=== PATIENT | female | born 1970 | race Caucasian/White ===

== ENCOUNTER 2016-11-07 05:33 | Observation (INO) | payer BC, OTHER ==
[2016-10-25 16:13] VITALS: BMI 24.0
[2016-11-07] VITALS (14 sets, daily range): BP systolic 108–136; BP diastolic 72–85; PULSE 65–111; TEMP 36.3–36.9; O2SAT 95–98; Ht 167.6 cm; Wt 68.2 kg
[~2016-11-07] VITALS: Ht 167.6 cm; Wt 68.2 kg
[~2016-11-07 05:33] MED LIST: ASPI81TA28 PO; BLAC40CA2 PO; MULT-506 PO; OMEG10007 PO; VENL150C56 PO
[2016-11-07] MEDS ORDERED: CEFAZOLIN 2000 MG/60 ML D5W IV SCH (06:00)
[2016-11-07] MEDS ORDERED: PREGABALIN 75 MG CAP PO SCH (06:00)
[2016-11-07] MEDS ORDERED: LACTATED RINGER'S 1000ML 1,000 ML IV SCH (06:00)
[2016-11-07] MEDS ORDERED: CeleBREX 200 MG CAP PO SCH (06:00)
[2016-11-07] MEDS ORDERED: MIDAZOLAM HCL 1 MG/ML 2ML VIAL ONE (06:39)
[2016-11-07] MEDS ORDERED: FENTANYL CITRATE INJ 50 MCG/1 ML 2 ML VIAL ONE (06:39)
[2016-11-07] MEDS ORDERED: THROMBIN 5000 UNITS KIT ONE (06:49)
[2016-11-07] MEDS ORDERED: BACITRACIN 50000 UNIT VIAL ONE (06:49)
--- NOTE | 2016-11-07 07:23 | History and Physical ---
History & Physical Date Nov 07, 2016. Chief Complaint Neck and arm pain History of Present Illness The patient is a 45 year old female with complaints of bilateral arm pain R greater than left. associated numbness in ulnar distribution. symptoms are chronic. no weakness in hands. no myelopathy. MRI shows cervical stenosis C5- 7 with mild DDD C4-5. Past Medical/Surgical History BRYANT cervicalgia quit tob anxiety melanoma Additional History Hepatic Disease: No Endocrine Disorder: No Kidney Disease: No Hypertension: No Heart Disease: No Bleeding Tendencies: No Infectious Diseases: No Allergies Coded Allergies: No Known Allergies (Unverified , 11/07/16) Home Medications Scheduled Aspirin (Aspirin Ec), 81 MG PO QAM Black Cohosh (Cimicifuga Racem (Black Cohosh), 40 MG PO QAM Fish Oil (Hemlock-3), 1 CAP PO QAM Multivitamin (Multivitamin), 1 TAB PO QAM Venlafaxine Hcl (Effexor Extended Rel), 150 MG PO QAM Physical Examination Skin: warm/dry Eyes: normal inspection ENT: normal ENT inspection, pharynx normal Head: normocephalic, atraumatic Neck: supple, trachea midline Respiratory/Chest: lungs clear, no respiratory distress Cardiovascular: regular rate, rhythm Back: normal inspection Extremities: normal inspection, normal range of motion Neurologic/Psych: no motor/sensory deficits, alert, normal reflexes, oriented x 3 Diagnosis cervical stenosis and DDD C5-7 Plan of Treatment ACDF C5-7
--- NOTE | 2016-11-07 07:34 | History & Physical Bridge Note ---
H&P Re-Evaluation Bridge Note: I have examined the patient, reviewed the History & Physical and in the interval since the performance of the History & Physical I have noted the following changes of clinical significance: possible C4-5 acdf No changes noted
[2016-11-07] MEDS ORDERED: HYDROmorphone INJ 2 MG/ML SYR/VIAL ONE (08:15)
[2016-11-07] MEDS ORDERED: DEXAMETHASONE SOD INJ 4 MG/ML VIAL ONE (08:15)
[2016-11-07] MEDS ORDERED: ROCURONIUM BROMIDE 10 MG/ML 5 ML VIAL ONE ×2 (08:15→09:11)
[2016-11-07] MEDS ORDERED: PROPOFOL IV EMULSION 10 MG/ML 20 ML VIAL IV ONE (08:15)
[2016-11-07] MEDS ORDERED: ONDANSETRON INJ 2 MG/ML 2 ML VIAL ONE (08:15)
[2016-11-07] MEDS ORDERED: LIDOCAINE HCL 2% 2 ML VIAL (20MG/ML) ONE (08:15)
[2016-11-07] MEDS ORDERED: EpHEDrine SULFATE INJ 50 MG/ML AMP IV PRN (08:45)
[2016-11-07] MEDS ORDERED: ONDANSETRON INJ 2 MG/ML 2 ML VIAL IV PRN ×2 (08:45→09:30)
[2016-11-07] MEDS ORDERED: PHENYLEPHRINE 100MCG/ML 5ML SYR IV PRN (08:45)
[2016-11-07] MEDS ORDERED: ATROPINE SULFATE 0.1 MG/ML 5ML SYR IV PRN (08:45)
[2016-11-07] MEDS ORDERED: LARYING-O-JET KIT (LTA) EXT ONE ×2 (09:11)
[2016-11-07] MEDS ORDERED: FLOSEAL HEMOSTATIC MATRIX 5ML TOP ONE (09:27)
--- NOTE | 2016-11-07 09:27 | [facility] Post Operative Brief Note ---
Immediate Operative Summary Operative Date Nov 07, 2016. Pre-Operative Diagnosis Cervical Stenosis and Degenterative Disc Disease C5-7 Post-Operative Diagnosis Same as preop Procedure(s) Performed C5-C7, Anterior Cervical Discectomy and Fusion, with Allograft Surgeon Dr. Herman Principal Secretary Surgeon(s) Jose Lee PA-C Estimated Blood Loss 25 ML Findings dict Specimens None per Surgeon
[2016-11-07] MEDS ORDERED: RACEPINEPHRINE 2.25% NEBU SOLN 0.5 ML VIAL INH PRN (09:30)
[2016-11-07] MEDS ORDERED: NALOXONE HCL 0.4 MG/1 ML VIAL/CARP IV PRN (09:30)
[2016-11-07] MEDS ORDERED: HYDROmorphone INJ 0.5 MG/0.5 ML SYR IV PRN (09:30)
[2016-11-07] MEDS ORDERED: DEXAMETHASONE INJ 8 MG in SYRINGE 0 ML IV PRN (09:30)
[2016-11-07] MEDS ORDERED: LORAZEPAM 0.5 MG TAB PO PRN (09:30)
[2016-11-07] MEDS ORDERED: ACETAMINOPHEN IV 1,000 MG in EMPTY BAG 0 ML IV PRN (09:30)
[2016-11-07] MEDS ORDERED: LORAZEPAM INJ 0.5 MG in SYRINGE 0.75 ML IV PRN (09:30)
[2016-11-07] MEDS ORDERED: OXYC-57 PO (09:33)
--- NOTE | 2016-11-07 09:34 | Discharge Instructions ---
Discharge Instructions Admission Reason for Admission: Cervical Spinal Stenosis Discharge Discharge Diagnosis / Problem: Cervical Stenosis Discharge Goals Goal(s): Decrease discomfort, Improve function, Increase independence Activity Recommendations Activity Limitations: as noted below Lifting Limitations: no more than 5 pounds, until after follow-up appointment Exercise/Sports Limitations: until after follow-up appointment Shower/Bathe: may shower/bathe in 3 days . Instructions / Follow-Up Instructions / Follow-Up ACTIVITY RECOMMENDATIONS: SELF CARE INSTRUCTIONS AFTER CERVICAL FUSIONS 1. No smoking. Smoking drastically decreases the chance of a solid fusion. 2. No bending, lifting more than 5 pounds, or twisting (roll like a log when turning in bed). 3. You may shower 3 days after surgery. Thoroughly dry wound. Do not soak in the tub. 4. Cervical collar: Must be worn at all times including sleeping. You may remove the brace only to bath, eat and if you are sitting in a recliner. 5. Please walk as much as you can for exercise. Gradually increase the distance that you walk as your endurance increases. SPECIAL CARE INSTRUCTIONS: VERY IMPORTANT TO READ AND REVIEW A. Do not take any anti-inflammatory medications (i.e. Indocin, Advil, Aspirin, Naprosyn, Aleve, Motrin, etc.) as these may inhibit the chance of a solid fusion. Tylenol is okay to take. B. Your surgical incision has been closed with a cosmetic suture under the skin that will dissolve in about 6 weeks. In 14 days, you can use a pair of clean scissors and cut the suture that is left outside of the skin at the ends of your incision. C. Complications are uncommon, but please contact us if you have any signs or symptoms of: 1. wound infection (fever higher than 102.5 degrees F, redness, separation of wound, drainage, or increasing pain from the incision) 2. blood clots in legs (pain, swelling, redness and warmth in legs) 3. urinary tract infection (fever higher than 102.5 degrees, burning upon urination or increased frequency of urination) 4. nerve problems (inability to walk on your toes or heels, numbness, loss of bowel or bladder control) 5. any other symptoms that concern you. D. Please call the office at if you have any concerns or questions about your operation or recovery. MANAGING PAIN AFTER SPINAL SURGERY 1. Narcotic medication is intended for short-term use and will be provided for surgical pain. Surgical pain usually lasts for a period of 4-6 weeks. Narcotic medication includes Percocet, Vicodin, Darvocet, Tylenol #3 or Lortab. 2. Longer-term pain is more appropriately treated with non-narcotic medication such as Tylenol ES. 3. Muscle spasm is not appropriately treated with narcotics. Muscle relaxers such as Soma, Flexeril or Skelaxin can be used along with Tylenol ES. 4. Remember that we all live with some "aches and pains". This is not unusual or uncommon after an injury or as we get older. 5. We will provide appropriate medication within the normal guidelines of their prescribed use. We will also be very cautious and aware of potential abuse and extended duration of patients' medication needs. 6. Please allow 2-3 days to process refills. Prescriptions will not be mailed but must be picked up at the office. FOLLOW UP VISIT: Keep your scheduled follow-up appointment. Any questions, please call the office at . Current Hospital Diet Patient's current hospital diet: Discharge Diet Recommended Diet: Regular Diet Procedures Procedures Performed: C5-C7, Anterior Cervical Discectomy and Fusion, with Allograft Pending Studies Studies pending at discharge: no Medical Emergencies . Who to Call and When: Medical Emergencies: If at any time you feel your situation is an emergency, please call 911 immediately. . Non-Emergent Contact Non-Emergency issues call your: Surgeon Call Non-Emergent contact if: temperature is above 101, your pain is not controlled, your pain is worsening, your pain is unusual for you, your pain is concerning you, wound has increased drainage, wound has increased redness, wound has increased pain, you have any medication questions . "Provider Documentation" section prepared by Robert Lee. VTE Core Measure Inpt VTE Proph given/why not?: Sophia Hernandez
--- NOTE | 2016-11-07 09:43 | DIAGNOSTIC IMAGING REPORT ---
Cervical spine CERVICAL 2 OR 3 VIEWS CLINICAL HISTORY: ACDF C4-C5/C5-C7 postoperative cervical fusion TECHNIQUE: Image intensifier COMPARISON STUDY: None FINDINGS: Findings consistent with a low cervical anterior fusion. Disc spaces are present. Alignment is anatomic IMPRESSION: Anatomic alignment status post low cervical fusion Electronically signed by: Akil Burt M.D. 11/07/2016 9:41 AM Dictated Date/Time: 11/07/2016 9:41 AM
[2016-11-07] MEDS: HYDROmorphone INJ 2 MG/ML SYR/VIAL IV PRN ×5 (09:52→10:27)
[2016-11-07] MEDS ORDERED: HYDROmorphone INJ 1 MG/ML SYR ONE (10:12)
[2016-11-07] MEDS ORDERED: IV FLUIDS COMPLETED PRN (10:45)
[2016-11-07] MEDS: SODIUM CHLORIDE 0.9% 1000ML 1,000 ML IV SCH ×2 (11:30→21:57)
--- NOTE | 2016-11-07 12:45 | Anesthesiology Progress Note ---
Anesthesia Post Op Note Date & Time Nov 07, 2016 at 12:45 Vital Signs Pain Intensity: 4 Vital Signs Past 12 Hours Date Time Temp Pulse Resp B/P Pulse Ox O2 Delivery O2 Flow Rate FiO2 11/07/16 12:00 36.9 78 16 136/76 97 Nasal Cannula 2.0 Humidified Oxygen 11/07/16 11:50 85 16 95 Nasal Cannula 2.0 11/07/16 11:00 37.0 84 13 120/85 94 Nasal Cannula 2 11/07/16 10:50 75 12 138/83 96 Nasal Cannula 2 11/07/16 10:40 93 17 151/82 95 Nasal Cannula 2 11/07/16 10:30 75 16 141/93 97 Nasal Cannula 2 11/07/16 10:20 86 14 138/90 98 Nasal Cannula 2 11/07/16 10:10 81 13 143/86 98 Nasal Cannula 2 11/07/16 10:00 99 17 143/94 100 Mask 10 11/07/16 09:50 87 13 142/92 100 Mask 10 11/07/16 09:43 36.5 96 16 139/96 98 Mask 10 11/07/16 05:53 36.4 70 16 115/72 98 Room Air Notes Mental Status: alert / awake / arousable, participated in evaluation Pt Amnestic to Procedure: Yes Nausea / Vomiting: adequately controlled Pain: adequately controlled Airway Patency, RR, SpO2: stable & adequate BP & HR: stable & adequate Hydration State: stable & adequate Anesthetic Complications: no major complications apparent
[2016-11-07] MEDS ORDERED: SCOPOLAMINE 1.5 MG TDSY TD SCH (13:00)
--- NOTE | 2016-11-07 14:10 | OPERATIVE REPORT ---
DATE OF OPERATION: 11/07/2016 PREOPERATIVE DIAGNOSES: 1. Cervical stenosis C5-C6 and C6-C7. 2. Cervical disc degeneration C5-C6, C6-C7. POSTOPERATIVE DIAGNOSES: Same. PROCEDURES: 1. Anterior cervical discectomy and fusion with application of PEEK intervertebral spacer with local autograft and DBM putty, C5-C6. 2. Anterior cervical discectomy and fusion with application of PEEK intervertebral spacer with local autograft and DBM putty, C6-C7. 3. Anterior cervical instrumentation C5-C6, C6-C7 with LDR POOAJ-C blade plates. SURGEON: Dr. Duarte. NEWS CONTENT SPECIALIST: Robert Lee PA-C. Please note he participated in all portions of the procedure and was critical for performance of the procedure, participated in positioning, prepping, draping, retraction and wound closure. ANESTHESIA: General endotracheal anesthesia. COMPLICATIONS: None. ESTIMATED BLOOD LOSS: Minimal. PROCEDURE IN DETAIL: After identification of patient and operative level, she was brought to the OR where she underwent induction of general anesthesia. She was then positioned supine on Jose OR table with Mohit horseshoe golf club head inspector. Arms were tucked at sides and well padded. Shoulders were taped distally and anterior neck was sterilely prepped and draped in usual fashion. Antibiotics were administered. Time-out was performed. Level was confirmed and skin incision was made from the right side of the neck at the level of the cricoid cartilage. I divided the platysma in line with the incision and performed a routine anterior cervical exposure with blunt dissection, identified presumptive disc spaces and marked them with electrocautery and mobilized the longus colli. A self-retaining cervical retractor was placed and Point pins were placed in the body of C5 and C7. Distraction was applied across the pins and level was reconfirmed. I then did a complete discectomy at C5-C6 and C6-C7, at each level I took down the posterior osteophytes with a gosia and then removed the posterior annulus and the PLL with Kerrisons. I performed foraminotomies as necessary at C5-C6, C6-C7, palpated the nerve roots that were decompressed. I then decorticated the endplates at C5-C6 and C6-C7 with a high speed gosia for subsequent graft introduction. Trial sizers were used, filled PEEK cages with local bone and DBM putty and tamped appropriate size cage into position. Then used the insertion handles to apply the LDR blade plates. They were deployed through each cage into the bone at C5-C6 and C6-C7. I then irrigated with bacitracin solution, obtained final x-rays, released Point distraction, applied bone wax over the holes and then closed in layered fashion over a small round drain. All sponge and needle counts were correct at the end of the case. I attest to the content of the Intraoperative Record and any orders documented therein. Any exceptio ns are noted below.
[2016-11-07] MEDS: CHECK SCOPOLAMINE PATCH PLACEMENT SCH (16:26)
[2016-11-07] MEDS: DEXAMETHASONE INJ 6 MG in SYRINGE 0 ML IV SCH (16:26)
[2016-11-07] MEDS: CEFAZOLIN IV 1,000 MG in DEXTROSE 5% 50ML 50 ML IV SCH (16:44)
[2016-11-07] MEDS: OXYCODONE HCL IR 5 MG TAB (IMMEDIATE RELEASE) PO PRN ×2 (17:32→18:25)
[2016-11-08] VITALS (9 sets, daily range): BP systolic 104–115; BP diastolic 68–78; PULSE 69–87; TEMP 36.5–36.8; O2SAT 94–100
[2016-11-08] MEDS: CEFAZOLIN IV 1,000 MG in DEXTROSE 5% 50ML 50 ML IV SCH ×2 (00:24→07:31)
[2016-11-08] MEDS: DEXAMETHASONE INJ 6 MG in SYRINGE 0 ML IV SCH ×2 (00:41→07:31)
[2016-11-08] MEDS: CHECK SCOPOLAMINE PATCH PLACEMENT SCH ×2 (00:42→07:31)
[2016-11-08] MEDS: OXYCODONE HCL IR 5 MG TAB (IMMEDIATE RELEASE) PO PRN (04:49)
--- NOTE | 2016-11-08 07:48 | Anesthesiology Progress Note ---
Anesthesia Post Op Note Date & Time Nov 08, 2016 at 07:48 Vital Signs Vital Signs Past 12 Hours Date Time Temp Pulse Resp B/P Pulse Ox O2 Delivery O2 Flow Rate FiO2 11/08/16 06:31 36.8 70 14 104/68 98 Room Air 11/08/16 04:30 36.5 69 16 106/71 97 Nasal Cannula 2.0 Humidified Oxygen 11/08/16 04:04 75 16 100 Nasal Cannula 2.0 11/08/16 02:30 36.5 87 14 114/78 96 Nasal Cannula 2.0 Humidified Oxygen 11/08/16 00:20 36.6 73 14 115/75 99 Nasal Cannula 2.0 Humidified Oxygen 11/07/16 23:56 86 16 97 Nasal Cannula 2.0 11/07/16 22:40 36.6 74 16 126/78 98 Nasal Cannula 2.0 Humidified Oxygen 11/07/16 20:26 36.5 65 18 130/76 97 Nasal Cannula 2.0 Humidified Oxygen 11/07/16 20:11 77 16 97 Nasal Cannula 2.0 Notes Mental Status: alert / awake / arousable, participated in evaluation Pt Amnestic to Procedure: Yes Nausea / Vomiting: adequately controlled Pain: adequately controlled Airway Patency, RR, SpO2: stable & adequate BP & HR: stable & adequate Hydration State: stable & adequate Anesthetic Complications: no major complications apparent
[2016-11-08] MEDS ORDERED: ASPIRIN 81 MG ECTAB PO SCH (09:00)
[2016-11-08] MEDS ORDERED: VENLAFAXINE HCL XR 150 MG CAPXR PO SCH (09:00)
--- NOTE | 2016-11-08 09:21 | Orthopedic Progress Note ---
Orthopedic Progress Note Date of Service Nov 08, 2016. Subjective Post OP Day: 1 Reports: feeling well, pain controlled w PO medications, Denies: SOB, calf pain , chest pain, complaints, light headedness, nausea / vomiting, using HALL SUPERVISOR Objective calves soft nontender, N/V intact, dressing C/D/I, hemovac drainage Date Time Temp Pulse Resp B/P Pulse Ox O2 Delivery O2 Flow Rate FiO2 11/08/16 08:26 36.6 71 15 111/68 97 Room Air 11/08/16 07:49 16 94 Room Air 11/08/16 07:30 97 Room Air 11/08/16 06:31 36.8 70 14 104/68 98 Room Air 11/08/16 04:30 36.5 69 16 106/71 97 Nasal Cannula 2.0 Humidified Oxygen 11/08/16 04:04 75 16 100 Nasal Cannula 2.0 11/08/16 02:30 36.5 87 14 114/78 96 Nasal Cannula 2.0 Humidified Oxygen 11/08/16 00:20 36.6 73 14 115/75 99 Nasal Cannula 2.0 Humidified Oxygen 11/07/16 23:56 86 16 97 Nasal Cannula 2.0 11/07/16 22:40 36.6 74 16 126/78 98 Nasal Cannula 2.0 Humidified Oxygen 11/07/16 20:26 36.5 65 18 130/76 97 Nasal Cannula 2.0 Humidified Oxygen 11/07/16 20:11 77 16 97 Nasal Cannula 2.0 11/07/16 19:05 Nasal Cannula 2.0 Humidified Oxygen 11/07/16 18:25 73 16 127/82 98 Room Air 11/07/16 16:24 75 16 122/85 97 Nasal Cannula 2.0 11/07/16 15:47 111 16 97 Nasal Cannula 2.0 11/07/16 14:30 36.3 81 16 108/77 96 Nasal Cannula 2.0 Humidified Oxygen 11/07/16 13:30 36.8 93 16 117/84 96 2.0 11/07/16 12:30 36.7 75 16 127/80 97 Nasal Cannula 2.0 Humidified Oxygen 11/07/16 12:00 36.9 78 16 136/76 97 Nasal Cannula 2.0 Humidified Oxygen 11/07/16 11:50 85 16 95 Nasal Cannula 2.0 11/07/16 11:30 Nasal Cannula 2.0 11/07/16 11:30 36.8 92 14 128/79 97 Nasal Cannula 2.0 11/07/16 11:30 97 Nasal Cannula 2.0 11/07/16 11:00 37.0 84 13 120/85 94 Nasal Cannula 2 11/07/16 10:50 75 12 138/83 96 Nasal Cannula 2 11/07/16 10:40 93 17 151/82 95 Nasal Cannula 2 11/07/16 10:30 75 16 141/93 97 Nasal Cannula 2 11/07/16 10:20 86 14 138/90 98 Nasal Cannula 2 11/07/16 10:10 81 13 143/86 98 Nasal Cannula 2 11/07/16 10:00 99 17 143/94 100 Mask 10 11/07/16 09:50 87 13 142/92 100 Mask 10 11/07/16 09:43 36.5 96 16 139/96 98 Mask 10 Assessment & Plan Assessment: doing well, d/c drain, d/c home Discharge Planning Discharge Planning: home Pain Management: Percocet DVT Prophylaxis: SCDs
[2016-11-08] MEDS: SODIUM CHLORIDE 0.9% 1000ML 1,000 ML IV SCH (10:12)
--- NOTE | 2016-11-14 12:13 | DISCHARGE SUMMARY ---
PRINCIPAL DIAGNOSIS: Includes cervical stenosis C5-C6, C6-C7, disc degeneration C5-C6, C6-C7. POSTOPERATIVE DIAGNOSIS: Same. PROCEDURE: ACDF C5-C6, C6-C7. SURGEON: Dr. Hamzah Duarte. BRANDING MACHINE TENDER: Robert Lee PA-C. HISTORY OF PRESENT ILLNESS: Please refer to EMR. HOSPITAL COURSE: On 11/07/2016 Ms. Ventura was admitted to [facility] with the above diagnosis. She was taken to preoperative holding where she was identified and evaluated and cleared for surgical management. She was transported to the operating room, introduced with general endotracheal anesthesia. Sterile conditions were set and she successfully underwent the above procedure without complication or issue. She was awakened in stable and satisfactory condition and placed in hard collar immobilization and transported to postoperative recovery. Here vital signs and pain were monitored and managed. The patient remained medically stable and was taken to the orthopedic floor for continued postoperative care. Throughout her stay she had no difficulty breathing or swallowing. She remained in mobilization. FERNANDO remained functioning with decreasing output. DVT and GI prophylactic measures were taken. There were no hospital complications or postoperative issues to note. On the morning of 11/08/2016 after provider evaluation she was indicated for return home. On this date, she was discharged from [facility]. DISPOSITION: Home. DISPOSITION CONDITION: Stable. NOTED COMPLICATIONS OR ISSUES: Zero. DISCHARGE INSTRUCTIONS: Please refer to EMR.
== END 2016-11-08 10:33 | disposition home or self-care (01) ==
LOC: ENRESERVTM → ENRESERVDT → C.ACU 05:33 → C.3E 09:44
PROVIDERS: ADMIT Orthopaedic Surgery Orthopaedic Surgery of the Spine; ATTEND Orthopaedic Surgery Orthopaedic Surgery of the Spine
DX: M48.02 Spinal stenosis, cervical region (principal); M50.322 Other cervical disc degeneration at C5-C6 level; M50.323 Other cervical disc degeneration at C6-C7 level; Z90.710 Acquired absence of both cervix and uterus; Z85.820 Personal history of malignant melanoma of skin; Z87.891 Personal history of nicotine dependence; Z79.82 Long term (current) use of aspirin